=== PATIENT | male | born 1975 | race Caucasian/White ===

== ENCOUNTER 2017-07-19 19:01 | Emergency (ER) | payer BC, OTHER ==
[~2017-07-19] VITALS: Ht 180.3 cm; Wt 113.0 kg
[~2017-07-19 19:01] MED LIST: BLOOD GLUCOSE T1 TES; CLON1TAB PO; ENAL20TA PO; LEVO200T4 PO; METF1000 PO; SERT-132 PO; SITA1TAB2 PO
[2017-07-19 19:26] VITALS: BP 140/93; PULSE 87; RESP 18; TEMP 98.3; O2SAT 96
--- NOTE | 2017-07-19 19:47 | PD ---
HPI Chief Complaint: Lump, Cyst, Hernia Time Seen by Provider: 19:33 Travel History International Travel<30 days: No Contact w/Intl Traveler<30days: No Traveled to known affect area: No History of Present Illness HPI 42-year-old male presents emergency Department with several day history of left sided facial/jaw swelling with tenderness, particularly right before eating over the past several days. Patient has history of similar episode approximately a month ago which lasted a day and a half and then resolved. Patient denies dental pain, difficulty swallowing, but has some discomfort in the left ear. Patient has no fever, chills, or other constitutional symptoms. Difficulty breathing. Patient does have hypertension as well as type 2 diabetes and history of anxiety: C monitored by his primary care physician. Patient recently started Januvia a month ago and has a follow- up with his primary care physician scheduled next couple of weeks. Patient states certain foods intensify the discomfort and swelling including chili and sour foods. He has no known drug allergies. PFSH Past Medical History Cancer: No Diabetes: No Glaucoma: No Hepatitis: No Hiatal Hernia: No Hypertension: Yes Thyroid Disease: Yes Past Surgical History Pacemaker: No Social History Alcohol Use: No Tobacco Use: No Allergies-Medications (Allergen,Severity, Reaction): Coded Allergies: No Known Allergies (Verified , 06/20/17) Reported Meds & Prescriptions Reported Meds & Active Scripts Active Ibuprofen 800 Mg Tab 800 Mg PO Q8H PRN Cipro (Ciprofloxacin HCl) 500 Mg Tab 500 Mg PO BID 7 Days Cleocin (Clindamycin HCl) 150 Mg Cap 450 Mg PO Q6H 7 Days Sertraline (Sertraline HCl) 50 Mg Tab 50 Mg PO DAILY Januvia (Sitagliptin Phosphate) 100 Mg Tab 100 Mg PO DAILY Clonazepam 1 Mg Tab 1 Mg PO BID PRN Enalapril (Enalapril Maleate) 20 Mg Tab 20 Mg PO DAILY Levothyroxine (Levothyroxine Sodium) 200 Mcg Tab 200 Mcg PO DAILY Metformin (Metformin HCl) 1,000 Mg Tab 1,000 Mg PO BIDPC With meals Review of Systems Except as stated in HPI: all other systems reviewed are Neg General / Constitutional: No: Fever, Chills Eyes: No: Visual changes HENT: Positive: Neck Stiffness, Neck Pain (see history present illness), Masses , Earache (mild on the left.), No: Headaches, Vertigo, Lightheadedness, Sore Throat, Rhinitis, Rhinorrhea, Congestion, Nosebleed, Gingival Bleeding (see history present illness), Dental Difficulties, Ear Discharge Cardiovascular: No: Chest Pain or Discomfort Respiratory: No: Cough, Shortness of Breath, Wheezing Gastrointestinal: No: Nausea, Vomiting, Diarrhea, Abdominal Pain Genitourinary: No: Dysuria Musculoskeletal: No: Pain Skin: No Rash Neurologic: No: Weakness Psychiatric: No: Depression Endocrine: No: Polydipsia Hematologic/Lymphatic: No: Easy Bruising Physical Exam Narrative GENERAL: Patient appears in no acute distress. SKIN: Warm and dry. Normal color. Normal turgor. No rash. HEAD: Atraumatic. Normocephalic. Patient has indurated mildly tender firm swelling over the left lower jaw along the ramus, but not extending underneath the chin. EYES: Pupils equal and round. No scleral icterus. No injection or drainage. ENT: No nasal bleeding or discharge. Mucous membranes pink and moist. Teeth are in good condition. No obvious signs of dental caries, cracked teeth, or dental abscess. No palpable stone in the left salivary lower duct. Pharynx is clear. No lymphangitis. Uvula is midline Airway is patent. TMs are clear bilaterally. No sinus tenderness to palpation or percussion. NECK: Trachea midline. Supple and nontender. No significant lymphadenopathy. CARDIOVASCULAR: Regular rate and rhythm. RESPIRATORY: No accessory muscle use. Clear to auscultation. Breath sounds equal bilaterally. GASTROINTESTINAL: Abdomen soft, non-tender, nondistended. Hepatic and splenic margins not palpable. MUSCULOSKELETAL: Extremities without clubbing, cyanosis, or edema. No obvious deformities. NEUROLOGICAL: Awake and alert. No obvious cranial nerve deficits. Motor grossly within normal limits. Five out of 5 muscle strength in the arms and legs. Normal speech. PSYCHIATRIC: Appropriate mood and affect; insight and judgment normal. Data Data Last Documented VS Vital Signs Date Time Temp Pulse Resp B/P (MAP) Pulse Ox O2 Delivery O2 Flow Rate FiO2 07/19/17 19:26 98.3 87 18 140/93 (109) 96 MDM Medical Decision Making Medical Screen Exam Complete: Yes Emergency Medical Condition: Yes Differential Diagnosis Sialadenitis, dental abscess, lymphoma, salivary gland tumor. Narrative Course Patient is medically stable at time of exam. Discussed the patient with Dr. Quezada who states that CT and labs are not necessarily absolutely necessary at this time if patient can follow up closely with his primary care physician. Treatment workup is discussed with patient and he elects to follow up closely with his primary care physician if symptoms persist or worsen. He understands that this could be a more serious condition, and will follow-up appropriately. Patient will be treated empirically with clindamycin 450 mg 4 times a day 7 days. Patient also given Cipro 500 mg twice a day for 7 days. Patient also given ibuprofen 800 mg 3 times daily with food #30. Patient is to use lemon drops to promote salivation. Patient should call his primary care physician for follow-up in the next week to ensure improvement. Patient can return to emergency Department with worsening symptoms as needed. Diagnosis Primary Impression: Sialadenitis Referrals: Primary Care Physician call for appointment Patient Instructions: General Instructions, Sialoadenitis (ED) Additional Instructions: Discussed the patient with Dr. Quezada who states that CT and labs are not necessarily absolutely necessary at this time if patient can follow up closely with his primary care physician. Treatment workup is discussed with patient and he elects to follow up closely with his primary care physician if symptoms persist or worsen. He understands that this could be a more serious condition, and will follow-up appropriately. Patient will be treated empirically with clindamycin 450 mg 4 times a day 7 days. Patient also given Cipro 500 mg twice a day for 7 days. Patient also given ibuprofen 800 mg 3 times daily with food #30. Patient is to use lemon drops to promote salivation. Patient should call his primary care physician for follow-up in the next week to ensure improvement. Patient can return to emergency Department with worsening symptoms as needed. Med/Other Pt SpecificInfo: Prescription(s) given Scripts Ibuprofen (Ibuprofen) 800 Mg Tab 800 MG PO Q8H Y for Pain/Inflammation, #30 TAB 0 Refills Prov: Linnette Quezada MD 07/19/17 Ciprofloxacin (Cipro) 500 Mg Tab 500 MG PO BID for Infection for 7 Days, #14 TAB 0 Refills Prov: Linnette Quezada MD 07/19/17 Clindamycin (Cleocin) 150 Mg Cap 450 MG PO Q6H for Infection for 7 Days, #84 CAP 0 Refills Prov: Linnette Quezada MD 07/19/17 Moisés Batres Jul 19, 2017 19:47
[2017-07-19] MEDS ORDERED: CIPR-9 PO (19:52)
[2017-07-19] MEDS ORDERED: CLIN150 PO (19:52)
[2017-07-19] MEDS ORDERED: IBUP1TAB7 PO (19:52)
== END 2017-07-19 20:09 | disposition home or self-care (01) ==
LOC: PHED 19:01 → PHEFT 20:09
DX: K11.20 Sialoadenitis, unspecified (principal); H92.02 Otalgia, left ear; I10 Essential (primary) hypertension; E11.9 Type 2 diabetes mellitus without complications; E07.9 Disorder of thyroid, unspecified; Z79.84 Long term (current) use of oral hypoglycemic drugs; Z86.59 Personal history of other mental and behavioral disorders
CPT/HCPCS: 99284